=== PATIENT | female | born 1995 | race Two or more races ===

== ENCOUNTER 2017-04-22 08:54 | Emergency (ER) | payer OTHER ==
--- NOTE | ~2017-04-22 | EKG ---
PATIENT: VINNY MONTES UNIT #: [id number] Ventricular Rate: 67 BPM Atrial Rate: 67 BPM P-R Interval: 146 ms QRS Duration: 66 ms Q-T Interval: 402 ms QTC Calculation(Bezet): 424 ms P [place]: 43 degrees Calculated R [place]: 78 degrees Calculated T [place]: 57 degrees Diagnosis Line: Sinus rhythm with marked sinus arrhythmia Diagnosis Line: Otherwise normal ECG Diagnosis Line: No previous ECGs available Diagnosis Line: Confirmed by CINDY MOTTA MD ([id number]) on Diagnosis Line: 04/23/2017 10:58:06 AM INTERPRETING MD: ÁNGELA ORELLANA
--- NOTE | ~2017-04-22 | CR72 ---
[facility]. [facility] A Service of [facility] & [facility] RADIOLOGY TEXT RESULTS PATIENT: VINNY MONTES LOCATION: SED : [birth year] UNIT #: [id number] AGE: [address]: Chinyere Ledesma MD SEX: F ORDER DR: [id number] [address] [address] [id number] E MR#: [id number] Acc #: [id number] NAME: VINNY MONTES : 1995 SEX: F STUDY DATE/TIME: 04/22/2017 10:23 UNIT: SED ROOM: STUDY DESCRIPTION: CR Chest Single View Portable Attending Physician: Chinyere Ledesma M.D. Ordering Physician: Chinyere Ledesma M.D. Primary Care Physician: Mary Anne Howard M.D. MEDICAL IMAGING REPORT This report is preliminary unless electronic signature is present. EXAM Chest portable, 04/22/2017 10:23 hours HISTORY 21-year-old who suffered syncopal episode at work this morning. Headache since event. COMPARISON 02/28/2013 FINDINGS Portable upright chest demonstrates normal cardiac, mediastinal and aortic contours. The pulmonary vascularity is normal. The lungs are clear and there are no effusions. IMPRESSION Normal portable upright chest film. Dictated by... Sadia Garcia M.D. THIS IS AN ELECTRONICALLY VERIFIED REPORT Sadia Garcia M.D. at 04/22/2017 2:31 PM Chau TD: 04/22/2017 11:45 JOB #: [id number] MEDICAL IMAGING REPORT Page 1 of 1
--- NOTE | ~2017-04-22 | CT71 ---
[facility] A Service [facility] & [facility] RADIOLOGY TEXT RESULTS PATIENT: VINNY MONTES LOCATION: SED : [birth year] UNIT #: [id number] AGE: [address]: Chinyere Ledesma MD SEX: F ORDER DR: [id number] [address] [address] [id number] E MR#: [id number] Acc #: [id number] NAME: VINNY MONTES : 1995 SEX: F STUDY DATE/TIME: 04/22/2017 10:45 UNIT: SED ROOM: STUDY DESCRIPTION: CT Head Wo Contrast Attending Physician: Chinyere Ledesma M.D. Ordering Physician: Chinyere Ledesma M.D. Primary Care Physician: Mary Anne Howard M.D. MEDICAL IMAGING REPORT This report is preliminary unless electronic signature is present. EXAM CT head. HISTORY Syncope, headache, passed out at work this a.m., pain across forehead this a.m. TECHNIQUE CT head performed skull base through vertex without intravenous contrast. This CT exam was performed with one or more of the following radiation dose reduction techniques: automatic exposure control, adjustment of mA and/or kV according to patient size, and iterative reconstruction. COMPARISON No prior CTs of head for comparison at this institution. FINDINGS Brainstem unremarkable. Cerebellum and cerebral hemispheres show normal galvez matter-white matter differentiation. No hemorrhage. No evidence of acute cortical ischemia. Midline structures nondisplaced. Basal ganglia intact. The ventricles, cisterns, and sulci are normal in size and contour. No intra or extraaxial mass effect or abnormal intracranial fluid collection. The intraorbital soft tissues have an appearance raising the possibility of disconjugate gaze. Correlate with exam. The appearance could be an artifact related to ocular motion during image acquisition. There is no evidence of acute sinusitis. No fracture. IMPRESSION 1. No acute abnormality is seen in the brain. If the patient has ongoing neurologic symptoms, consider follow up imaging. 2. No fracture. 3. Appearance of the intraorbital soft tissues raises the possibility of STS. [facility] A Service of [facility] & [facility] RADIOLOGY TEXT RESULTS PATIENT: VINNY MONTES [place]ATION[place] [facility] [place] [birth year] UNIT #: [id number] AGE: [address]: Chinyere Ledesma MD SEX: F ORDER DR: disconjugate gaze. Please correlate with exam. Appearance could be an artifact related to ocular motion during image acquisition. Dictated by... Kwadwo Kiser M.D. THIS IS AN ELECTRONICALLY VERIFIED REPORT Kwadwo Kiser M.D. at 04/23/2017 7:11 PM OMARI/torey TD: 04/22/2017 12:24 JOB #: [id number] MEDICAL IMAGING REPORT Page 1 of 1
[~2017-04-22 08:54] MED LIST: AMOXICILLIN500 M1 PO; CLARITIN D; DICYCLOMINE HCL20 MG PO; FLEXERIL10 MG PO; NO MEDICATIONS; PROZAC PO; PROZAC10 M1; TENEX1 MG PO; ZOFRAN2 MG/M1 PO; ZYRTEC PO; [UNRECOGNIZED DRUG - OTHER]
[2017-04-22] MEDS ORDERED: PROZAC PO (08:55)
[2017-04-22] MEDS ORDERED: ALBUTEROL17 GM INH (08:55)
[2017-04-22 09:56] LABS: BASOPHIL% 0.3 % (0-2.5); EOSINOPHIL# 0.1 X10e3 (0-0.7); EOSINOPHIL% 1.6 % (0.0-7.0); HEMATOCRIT 40.6 % (35.0-45.0); HEMOGLOBIN 13.3 gm/dL (12.0-16.0); LYMPHOCYTE# 1.3 X10e3 (1.0-3.5); LYMPHOCYTE% 16.5 % (17.0-45.0); MEAN CELL VOLUME 89.8 FL (83-96); MEAN CORPUSCULAR HEMOGLOBIN 29.3 PG (28-34); MEAN CORPUSCULAR HGB CONC 32.7 g/dL (30-36); MEAN PLATELET VOLUME 8.1 FL (6.5-11.5); MONOCYTE# 0.5 X10e3 (0-1.0); MONOCYTE% 6.2 % (3.0-12.0); NEUTROPHIL# 5.8 X10e3 (1.5-7.1); NEUTROPHIL% 75.4 % (40-75); PLATELET COUNT 187 X10e3 (140-420); RED BLOOD COUNT 4.52 X10e (3.90-5.30); RED CELL DISTRIBUTION WIDTH 13.4 % (11.0-15.5); WHITE BLOOD COUNT 7.7 X10e3 (4.0-10.5)
[2017-04-22 09:56] LABS: URINE SOURCE CLEAN CATCH
[2017-04-22 09:59] LABS: URINE APPEARANCE CLEAR; URINE BILIRUBIN NEG (NEG); URINE BLOOD NEG (NEG); URINE COLOR YELLOW; URINE GLUCOSE NEG (NORM); URINE KETONE NEG (NEG); URINE LEUKOCYTE ESTERASE 1+ (NEG); URINE NITRATE NEG (NEG); URINE PROTEIN NEG (NEG); URINE SPECIFIC GRAVITY 1.015 (1.003-1.035)
[2017-04-22 10:00] LABS: MICRO INDICATED? YES
[2017-04-22 10:03] LABS: DIFF IND NO
[2017-04-22 10:07] LABS: INR 1.1; PROTHROMBIN TIME (PATIENT) 12.4 SECONDS (9.5-12.4)
[2017-04-22 10:09] LABS: AMPHETAMINE NEG (NEG); BARBITURATES NEG (NEG); BENZODIAZEPINES NEG (NEG); COCAINE NEG (NEG); MARIJUANA NEG (NEG); OPIATES NEG (NEG); TRICYCLIC ANTIDEPRESSANTS NEG (NEG); U METHADONE NEG (NEG)
[2017-04-22 10:13] LABS: URINE BACTERIA NEG (NEG); URINE RBC 0-2 /[HPF] (0-2); URINE SQUAMOUS EPITHELIAL CELL MANY /[HPF]
[2017-04-22 10:15] LABS: ALBUMIN SERUM 4.8 g/dL (3.5-5.0); BILIRUBIN, DIRECT 0.1 mg/dL (0.0-0.2); BILIRUBIN,INDIRECT 0.4 mg/dL (0.0-0.9); BILIRUBIN,TOTAL 0.5 mg/dL (0.2-2.0); BUN/CREATININE RATIO 17.5; CALCIUM SERUM 8.9 mg/dL (8.4-10.2); CREATININE SERUM 0.8 mg/dL (0.6-1.4); GLOM FILT RATE Estimated 106.2 mL/min (>60); POTASSIUM 3.9 mmol/L (3.5-5.1); PROTEIN TOTAL SERUM 7.9 g/dL (6.0-8.3)
== END 2017-04-22 12:48 | disposition home or self-care (01) ==
LOC: SED 08:54
PROVIDERS: Emergency Medicine
DX: T67.1XXA Heat syncope, initial encounter (principal); E86.0 Dehydration; J45.909 Unspecified asthma, uncomplicated; Z79.899 Other long term (current) drug therapy
CPT/HCPCS: 36415; 70450; 71010; 80048; 80076; 80307; 81003; 82550; 82947; 84703; 85025; 85610; 93005; 96360; 96361; 99285